=== PATIENT | female | born 1980 | race Asian ===

== ENCOUNTER 2023-07-09 10:20 | Emergency (ER) | payer OTHER ==
[~2023-07-09] VITALS: Ht 162.6 cm; Wt 78.0 kg
[2023-07-09] MEDS ORDERED: TETRAHYDROZOLINE HCL 0.05% OPTH(EYE)SOL OP STA (11:44)
[2023-07-09] MEDS ORDERED: ACETAMINOPHEN 325 MG TAB PO ONE (11:45)
[2023-07-09] MEDS ORDERED: FLUORESCEIN SOD OPTH TEST STRIP OP ONE (11:45)
[2023-07-09] MEDS ORDERED: CIPROFLOXACIN 0.3%OPTH(EYE) SOL 5ML LEFTEYE ONE (11:45)
[2023-07-09] MEDS ORDERED: OPHTHALMIC IRRIGATION SOLN 30ML OP ONE (11:45)
[2023-07-09] MEDS ORDERED: TETANUS-DIPTH-ACEL PERTUSSIS 0.5ML SYR Tdap IM ONE (11:45)
[2023-07-09] MEDS ORDERED: PROPARACAINE HCL 0.5% OPTH(EYE) SOL 15ML OP ONE (14:00)
[2023-07-09] MEDS ORDERED: IBUPROFEN 600 MG TAB PO ONE (20:15)
[2023-07-09] MEDS ORDERED: IBU600T PO (20:20)
[2023-07-09 20:56] VITALS: BP 147/69; TEMP 98.1
[2023-07-09 20:58] VITALS: PULSE 71; RESP 18; O2SAT 98
== END 2023-07-09 21:02 | disposition home or self-care (01) ==
LOC: ER 10:20
DX: S05.12XA Contusion of eyeball and orbital tissues, left eye, initial encounter (principal); H05.222 Edema of left orbit; H20.9 Unspecified iridocyclitis; E03.9 Hypothyroidism, unspecified; Z78.1 Physical restraint status; X58.XXXA Exposure to other specified factors, initial encounter; Y93.89 Activity, other specified; Y92.89 Other specified places as the place of occurrence of the external cause; Y99.8 Other external cause status
CPT/HCPCS: 70450; 70480; 90471; 90715